=== PATIENT | male | born 1980 | race Caucasian/White ===

== ENCOUNTER 2022-03-19 00:47 | Emergency (ER) | payer BC ==
--- NOTE | 2022-03-19 01:29 | ERPHSYRPT ---
- History of Present Illness Historian: patient, other () Exam Limitations: other (Poor historian) Patient Subjective Stated Complaint: pt states that he has been having pain in his rt groin from kidney stones and chest pain since yesterday. rates painn 8/10 at this time. states he has been feeling very tired since he began having chest pain yesterday Triage Nursing Assessment: pt alert and oriented, answers questions approp. pt ambulatory with steady gait noted. skin pink warm and dry. heart rate 104 on monitor, sinus tach. Physician History: 41 yo wm w L sided chest pain x 1 day. Pain is 8/10, sharp, and accompanied by N/diaphoresis. Vomiting and dyspnea are denied. Pt states that he is hypertensive but takes no meds because he "does not like doctors". He smokes 1ppd. Pt also complains of chronic kidney stones and pain at "end of ureter". Hematuria/fever/cough are denied. Timing/Duration: yesterday Activities at Onset: rest Quality: sharpness, stabbing Location: substernal (L thorax) Chest Pain Radiation: no radiation Severity of Pain-Max: severe Severity of Pain-Current: severe Modifying Factors: Improves With: nothing Associated Symptoms: nausea, abdominal pain, diaphoresis, No vomiting, No pal pitations, No heartburn, No shortness of breath, No cough, No hurts to breathe, No chills, No fever, No fatigue, No weakness, No swelling/lump in chest, No syncope, No rash, No headache, No dizziness, No edema, No back pain Nitro Today/Relief: no nitro taken today Aspirin Treatment Today: no aspirin today Allergies/Adverse Reactions: No Known Drug Allergies Allergy (Verified 03/19/22 01:14) Hx Tetanus, Diphtheria Vaccination/Date Given: Yes Hx Influenza Vaccination/Date Given: No Hx Pneumococcal Vaccination/Date Given: No Immunizations Up to Date: Yes Travel Risk - International Travel Have you traveled outside of the country in past 3 weeks: No - Coronavirus Screening Are you exhibiting any of the following symptoms?: No Close contact with a COVID-19 positive Pt in past 14-21 Days: No - Vaccine Status Have you recieved a Covid-19 vaccination: No - Review of Systems Constitutional: No Symptoms Eyes: No Symptoms Ears, Nose, & Throat: No Symptoms Respiratory: No Symptoms, Dyspnea Cardiac: No Symptoms, Chest Pain Abdominal/Gastrointestinal: No Symptoms, Nausea Genitourinary Symptoms: No Symptoms, Dysuria Musculoskeletal: No Symptoms Skin: No Symptoms Neurological: No Symptoms Psychological: No Symptoms Endocrine: No Symptoms Hematologic/Lymphatic: No Symptoms Immunological/Allergic: No Symptoms - Past Medical History Pertinent Past Medical History: Yes Other Medical History: bulging disks, mrsa - Past Surgical History Past Surgical History: Yes Musculoskeletal: Orthopedic Surgery Other Surgical History: i&d's from mrsa - Social History Smoking Status: Current every day smoker How long have you smoked: 27 yrs Exposure to second hand smoke: Yes Drug Use: marijuana Patient Lives Alone: No Significant Family History: no pertinent family hx - Nursing Vital Signs Nursing Vital Signs: Initial Vital Signs Temperature 97.7 F 03/19/22 00:53 Pulse Rate 104 H 03/19/22 00:53 Respiratory Rate 16 03/19/22 00:53 Blood Pressure 170/112 03/19/22 00:53 O2 Sat by Pulse Oximetry 97 03/19/22 00:53 Pain Scale Pain Intensity 4 - Physical Exam General Appearance: no apparent distress Eye Exam: PERRL/EOMI, eyes nml inspection Ears, Nose, Throat Exam: normal ENT inspection, TMs normal, pharynx normal, moist mucous membranes Neck Exam: normal inspection, non-tender, supple, full range of motion, No meningismus, No mass, No Brudzinski, No Kernig's, No carotid bruit Respiratory Exam: normal breath sounds, lungs clear, airway intact Cardiovascular Exam: regular rate/rhythm, normal heart sounds, normal peripheral pulses, capillary refill <2 sec, No murmur Gastrointestinal/Abdomen Exam: soft, normal bowel sounds, No tenderness, No distention Male Genitalia Exam: hernia (Probable R IH(Pt states that this is a palpable kidney stone)) Back Exam: normal inspection, normal range of motion, No CVA tenderness, No vertebral tenderness Extremity Exam: normal inspection, normal range of motion Neurologic Exam: alert, oriented x 3, cooperative, improvement intern II-XII nml as tested, normal mood/affect, nml cerebellar function, nml station & gait, sensation nml, No motor deficits, No sensory deficit Skin Exam: normal color, warm, dry Lymphatic Exam: No adenopathy SpO2 Interpretation: normal SpO2: 97 O2 Delivery: Room Air - Course Nursing assessment & vital signs reviewed: Yes EKG Interpreted by Me: RATE (Sinus tach/[id number]/Borderline prolonged QTc/N onspecific ST changes) - CT Exams Abdomen/Pelvis CT Interpretation: Tele-radiologist Report (Hepatosplenomegaly/Fat containing R inguinal hernia) Ordered Tests: Active Orders 24 hr Category Date Time Status EKG-ER Only STAT Care 03/19/22 01:22 Completed IV Insertion STAT Care 03/19/22 01:22 Completed ABDOMEN AND PELVIS W/0 CONTRAS [CT] Stat Exams 03/19/22 02:19 Taken CHEST 1 VIEW (PORTABLE) Stat Exams 03/19/22 01:22 Taken CBC W DIFF Stat Lab 03/19/22 01:30 Completed CMP Stat Lab 03/19/22 01:30 Completed NT PRO BNP Stat Lab 03/19/22 01:30 Completed PROTIME WITH INR Stat Lab 03/19/22 01:30 Completed PTT Stat Lab 03/19/22 01:30 Completed TROPONIN Q3H Lab 03/19/22 01:30 Completed UA W/RFX CULTURE Stat Lab 03/19/22 02:20 Completed Urine Triage Profile Stat Lab 03/19/22 02:07 Completed Medication Summary Discontinued Medications Generic Name Dose Route Start Last Admin Trade Name Freq PRN Reason Stop Dose Admin Ketorolac Tromethamine 15 mg 03/19/22 02:21 03/19/22 02:48 Ketorolac Tromethamine 30 Mg/Ml Inj IV 03/19/22 02:22 15 mg STAT ONE Administration Ketorolac Tromethamine Confirm 03/19/22 02:47 Ketorolac Tromethamine 30 Mg/Ml Inj Administered 03/19/22 02:48 Dose 30 mg .ROUTE .STK-MED ONE Lab/Rad Data: Laboratory Result Diagrams 03/19/22 01:30 03/19/22 01:30 Laboratory Results 03/19/22 03/19/22 03/19/22 Range/Units 02:20 02:07 01:30 WBC (4.0-10.5) K/mm3 RBC (4.1-5.6) M/mm3 Hgb (12.5-18.0) gm/dl Hct (42-50) % MCV (78-100) fl MCH (26-32) pg MCHC (32-36) g/dl RDW (11.5-14.0) % Plt Count (150-450) K/mm3 MPV (7.5-11.0) fl Gran % (36.0-66.0) % Eos # (Auto) (0-0.5) Absolute Lymphs (auto) (1.0-4.6) Absolute Monos (auto) (0.0-1.3) Lymphocytes % (24.0-44.0) % Monocytes % (0.0-12.0) % Eosinophils % (0.00-5.0) % Basophils % (0.0-0.4) % Absolute Granulocytes (1.4-6.9) Basophils # (0-0.4) PT (9.4-12.5) SECONDS INR (0.8-3.0) APTT (25.1-36.5) SECONDS Sodium (137-145) mmol/L Potassium (3.5-5.1) mmol/L Chloride (98-107) mmol/L Carbon Dioxide (22-30) mmol/L Anion Gap (5-15) MEQ/L BUN (9-20) mg/dL Creatinine (0.66-1.25) mg/dL Estimated GFR ML/MIN Glucose (74-106) mg/dL Calcium (8.4-10.2) mg/dL Total Bilirubin (0.2-1.3) mg/dL AST (17-59) U/L ALT (0-50) U/L Alkaline Phosphatase (38-126) U/L Troponin I < 0.012 (0.000-0.034) ng/mL NT-Pro-B Natriuret Pep (0-450) pg/mL Serum Total Protein (6.3-8.2) g/dL Albumin (3.5-5.0) g/dL Urinalys Dipstick Clnc MAIN LAB Urine Color YELLOW (YELLOW) Urine Appearance SLIGHTLY CLOUDY (CLEAR) Urine pH 6.5 (5-6) Ur Specific [place] 1.025 (1.005-1.025) POC Urine Protein Conf NEGATIVE (Negative) Urine Ketones TRACE (NEGATIVE) Urine Nitrite NEGATIVE (NEGATIVE) Urine Bilirubin SMALL (NEGATIVE) Urine Urobilinogen 4 (0-1) mg/dL Urine Leukocytes NEGATIVE (NEGATIVE) Urine WBC (Auto) 3-5 (0-5) /HPF Urine RBC (Auto) 0-2 (0-2) /HPF Urine Bacteria (Auto) RARE (NEGATIVE) /HPF Urine RBC NEGATIVE (0-5) Victor Manuel/ul Urine Mucus (Auto) SLIGHT (NEGATIVE) /HPF Ur Culture Indicated? NO Urine Glucose NEGATIVE (NEGATIVE) mg/dL Urine Opiates Level NEGATIVE (NEGATIVE) Ur Methadone NEGATIVE (NEGATIVE) Urine Barbiturates NEGATIVE (NEGATIVE) Ur Phencyclidine (PCP) NEGATIVE (NEGATIVE) Urine Amphetamine NEGATIVE (NEGATIVE) U Benzodiazepine Level NEGATIVE (NEGATIVE) Urine Cocaine NEGATIVE (NEGATIVE) Urine Marijuana (THC) POSITIVE (NEGATIVE) 03/19/22 03/19/22 03/19/22 Range/Units 01:30 01:30 01:30 WBC 7.0 (4.0-10.5) K/mm3 RBC 3.98 L (4.1-5.6) M/mm3 Hgb 15.9 (12.5-18.0) gm/dl Hct 42.9 (42-50) % MCV 107.8 H (78-100) fl MCH 39.9 H (26-32) pg MCHC 37.1 H (32-36) g/dl RDW 13.0 (11.5-14.0) % Plt Count 141 L (150-450) K/mm3 MPV 10.0 (7.5-11.0) fl Gran % 68.0 H (36.0-66.0) % Eos # (Auto) 0.15 (0-0.5) Absolute Lymphs (auto) 1.65 (1.0-4.6) Absolute Monos (auto) 0.38 (0.0-1.3) Lymphocytes % 23.7 L (24.0-44.0) % Monocytes % 5.5 (0.0-12.0) % Eosinophils % 2.2 (0.00-5.0) % Basophils % 0.6 (0.0-0.4) % Absolute Granulocytes 4.75 (1.4-6.9) Basophils # 0.04 (0-0.4) PT 14.4 H (9.4-12.5) SECONDS INR 1.22 (0.8-3.0) APTT 35.0 (25.1-36.5) SECONDS Sodium 140 (137-145) mmol/L Potassium 3.6 (3.5-5.1) mmol/L Chloride 105 (98-107) mmol/L Carbon Dioxide 23 (22-30) mmol/L Anion Gap 15.2 H (5-15) MEQ/L BUN 3 L (9-20) mg/dL Creatinine 0.60 L (0.66-1.25) mg/dL Estimated GFR > 60.0 ML/MIN Glucose 153 H (74-106) mg/dL Calcium 10.4 H (8.4-10.2) mg/dL Total Bilirubin 2.30 H (0.2-1.3) mg/dL AST 104 H (17-59) U/L ALT 64 H (0-50) U/L Alkaline Phosphatase 103 (38-126) U/L Troponin I (0.000-0.034) ng/mL NT-Pro-B Natriuret Pep 21.4 (0-450) pg/mL Serum Total Protein 7.8 (6.3-8.2) g/dL Albumin 4.7 (3.5-5.0) g/dL Urinalys Dipstick Clnc Urine Color (YELLOW) Urine Appearance (CLEAR) Urine pH (5-6) Ur Specific [place] (1.005-1.025) POC Urine Protein Conf (Negative) Urine Ketones (NEGATIVE) Urine Nitrite (NEGATIVE) Urine Bilirubin (NEGATIVE) Urine Urobilinogen (0-1) mg/dL Urine Leukocytes (NEGATIVE) Urine WBC (Auto) (0-5) /HPF Urine RBC (Auto) (0-2) /HPF Urine Bacteria (Auto) (NEGATIVE) /HPF Urine RBC (0-5) Victor Manuel/ul Urine Mucus (Auto) (NEGATIVE) /HPF Ur Culture Indicated? Urine Glucose (NEGATIVE) mg/dL Urine Opiates Level (NEGATIVE) Ur Methadone (NEGATIVE) Urine Barbiturates (NEGATIVE) Ur Phencyclidine (PCP) (NEGATIVE) Urine Amphetamine (NEGATIVE) U Benzodiazepine Level (NEGATIVE) Urine Cocaine (NEGATIVE) Urine Marijuana (THC) (NEGATIVE) - Progress Progress Note: 03/19/22 03:19 15mg IV Toradol Counseled pt/family regarding: lab results, diagnosis, need for follow-up, rad results - Departure Departure Disposition: Home Clinical Impression: Transaminitis, Chest pain, Hypertension Condition: Stable Critical Care Time: No Referrals: DOCTOR,NO FAMILY [Primary Care Provider] - Follow up/PCP as directed Instructions: High Blood Pressure (DC), Chest Pain (DC) Additional Instructions: Follow up with your family MD about elevated liver enzymes Start Norvasc once a day Return to ER for increasing pain, shortness of breath. or temperature greater than 100.5 Prescriptions: Amlodipine Besylate 5 mg [Norvasc 5 mg] 2.5 mg PO DAILY #30 tablet
[2022-03-19 01:36] LABS: Absolute Neutrophil Ct (ANC) 4.75 (1.4-6.9); Basophil (Absolute #) 0.04 (0-0.4); Eosinophil % 2.2 % (0.00-5.0); Eosinophil (Absolute #) 0.15 (0-0.5); Hematocrit 42.9 % (42-50); Hemoglobin 15.9 gm/dl (12.5-18.0); Lymphocyte (Absolute #) 1.65 (1.0-4.6); Lymphocytes % 23.7 % (24.0-44.0); Mean Cell Volume 107.8 fl (78-100); Mean Corpuscular Hemoglobin 39.9 pg (26-32); Mean Corpuscular Hgb Concent. 37.1 g/dl (32-36); Monocyte (Absolute #) 0.38 (0.0-1.3); Monocytes % 5.5 % (0.0-12.0); Platelet Count 141 K/mm3 (150-450); Red Blood Count 3.98 M/mm3 (4.1-5.6)
[2022-03-19 01:43] LABS: INR 1.22 (0.8-3.0); PROTIME 14.4 SECONDS (9.4-12.5)
[2022-03-19 01:56] LABS: ALBUMIN 4.7 g/dL (3.5-5.0); ALKALINE PHOSPHATASE 103 U/L (38-126); ANION GAP 15.2 MEQ/L (5-15); BLOOD UREA NITROGEN 3 mg/dL (9-20); CHLORIDE 105 mmol/L (98-107); Calcium 10.4 mg/dL (8.4-10.2); Carbon Dioxide 23 mmol/L (22-30); EST GLOMERULAR FILTRATION RATE > 60.0 ML/MIN; Glucose 153 mg/dL (74-106); NT PRO BNP 21.4 pg/mL (0-450); Potassium 3.6 mmol/L (3.5-5.1); SGOT/AST 104 U/L (17-59); SGPT/ALT 64 U/L (0-50); SODIUM 140 mmol/L (137-145); Total Protein 7.8 g/dL (6.3-8.2)
[2022-03-19 02:21] LABS: Appearance SLIGHTLY CLOUDY (CLEAR); Bacteria RARE /HPF (NEGATIVE); Bilirubin SMALL (NEGATIVE); Glucose NEGATIVE (NEGATIVE); Ketones TRACE (NEGATIVE); Mucus SLIGHT /HPF (NEGATIVE); RBC 0-2 /HPF (0-2); Specific Gravity 1.025 (1.005-1.025)
[2022-03-19] MEDS ORDERED: TORAdol 30 mg Injection IV ONE (02:21)
[2022-03-19 02:22] LABS: Nitrite NEGATIVE (NEGATIVE); Ph 6.5 (5-6); Protein,Urine Dip NEGATIVE (Negative); RBC NEGATIVE Ery/ul (0-5); Urine Cultured Indicated? NO; Urobilinogen 4 mg/dL (0-1)
[2022-03-19 02:31] LABS: Dipstick done @ ? MAIN LAB
[2022-03-19 02:31] LABS: Amphetamine,Urine NEGATIVE (NEGATIVE); Barbiturate,Urine NEGATIVE (NEGATIVE); Benzodiazepine,Urine NEGATIVE (NEGATIVE); Cocaine,Urine NEGATIVE (NEGATIVE); Methadone,Urine NEGATIVE (NEGATIVE); Opiate,Urine NEGATIVE (NEGATIVE); PCP,Urine NEGATIVE (NEGATIVE); THC,Urine POSITIVE (NEGATIVE)
[2022-03-19] MEDS ORDERED: TORAdol 30 mg Injection ONE (02:47)
[2022-03-19 03:23] VITALS: O2SAT 97
[2022-03-19 03:26] VITALS: BP 145/92; PULSE 84
--- NOTE | 2022-03-19 07:37 | XRAY ---
Indication: Chest pain. Comparison: None Portable apical lordotic chest demonstrates normal heart and lungs. Bony thorax intact with minimal degenerative changes and minimal dextroscoliosis.
--- NOTE | 2022-03-19 07:42 | XRAY ---
Indication: Bilateral flank pain. History of stones. Multiple contiguous axial images obtained through the abdomen and pelvis without contrast using renal stone protocol. Comparison: None Lung bases demonstrates mild dependent atelectasis. No infiltrate or effusion. Heart not enlarged. No renal calculus or evidence for obstructive uropathy in either system. Noncontrasted stomach and bowel loops appear nonobstructed. Normal appendix. Mild scattered colonic diverticulosis without diverticulitis. No free fluid/air. Incidental 23.5 cm fatty hepatomegaly, 18.5 cm splenomegaly, and 2.3 cm left renal cyst. Remaining liver, gallbladder, pancreas, spleen, adrenal glands, kidneys, ureters, and bladder are unremarkable for noncontrast exam. Mild scattered aortoiliac calcifications without AAA. Osseous structures intact with mild degenerative changes throughout the spine. Small fatty right inguinal hernia. Impression: 1. Negative renal calculus or evidence for obstructive uropathy. 2. Incidental colonic diverticulosis, fatty hepatomegaly, splenomegaly, small fatty right inguinal hernia, and chronic bony findings. Comment: Preliminary interpretation made by [facility]. No critical discrepancy.
== END 2022-03-19 03:30 | disposition home or self-care (01) ==
LOC: ED 00:47
DX: I10 Essential (primary) hypertension (principal); R07.9 Chest pain, unspecified; R74.01 Elevation of levels of liver transaminase levels; R11.0 Nausea; R61 Generalized hyperhidrosis; R10.9 Unspecified abdominal pain; Z72.0 Tobacco use
CPT/HCPCS: 36000; 36415; 71045; 74176; 80053; 80307; 81015; 83880; 84484; 85025; 85610; 85730; 93005; 96374; 99284; J1885

== ENCOUNTER 2024-04-30 12:57 | Emergency (ER) | payer BC ==
--- NOTE | 2024-04-30 13:22 | ERPHSYRPT ---
- History of Present Illness Time Seen by Provider: 04/30/24 13:22 Source: patient Exam Limitations: no limitations Physician History: The patient, with a history of multiple surgeries including a meniscus repair less than a year ago, presents after a fall down 'ten, twelve steps' two days ago. He was carrying large area rugs down the stairs when he slipped on a rug and fell directly onto his knees, using his right elbow to brace himself. He reports severe pain in his right knee, which he has been unable to walk on since the fall. He can only bend the knee slightly and has difficulty lifting his leg when lying on his side. He also reports some pain in his right hip and right elbow. His ankles are also swollen, but it is unclear if this is related to the fall. Occurred: yesterday Reason for Fall: slipped Injuries/Pain Location: upper extremity (right elbow), lower extremity (bilateral knee) Loss of Consciousness: no loss of consciousness Quality: throbbing Severity of Pain-Max: severe Severity of Pain-Current: severe Modifying Factors: Worsens With: movement Associated Symptoms (Fall): denies symptoms Allergies/Adverse Reactions: No Known Drug Allergies Allergy (Verified 04/30/24 13:10) Hx Tetanus, Diphtheria Vaccination/Date Given: Yes Hx Influenza Vaccination/Date Given: No Hx Pneumococcal Vaccination/Date Given: No - Review of Systems All Other Systems: Reviewed and Negative - Past Medical History Pertinent Past Medical History: Yes Psycho-Social History: Anxiety, Other Other Medical History: bulging disks, mrsa,ESPHOGEAL VARACIES,PTSD - Past Surgical History Past Surgical History: Yes Musculoskeletal: Orthopedic Surgery Other Surgical History: i&d's from mrsa,KNEE, RIGHT ELBOW .LEFT KNEE ,BANDING, KIDNEY STONE REMOVAL Significant Family History: no pertinent family hx - Social History Smoking Status: Current every day smoker How long have you smoked: 27 yrs Exposure to second hand smoke: Yes Drug Use: marijuana Patient Lives Alone: No - Nursing Vital Signs Nursing Vital Signs: Initial Vital Signs Temperature 97.2 F 04/30/24 13:26 Pulse Rate 78 04/30/24 13:26 Respiratory Rate 18 04/30/24 13:26 Blood Pressure 162/94 04/30/24 13:26 O2 Sat by Pulse Oximetry 98 04/30/24 13:26 Pain Scale Pain Intensity 5 - Adams Coma Score Best Eye Response (Adams): (4) open spontaneously Best Verbal Response (Alexander): (5) oriented Best Motor Response (Adams): (6) obeys commands Adams Total: 15 - Physical Exam General Appearance: mild distress Head Injury: no evidence of injury Comment: Right elbow Inspection: no obvious deformities, no swelling + lateral and medial epicondyle TTP ROM limited by pain Elbow Stability: - varus laxity, - valgus laxity Biceps 5/5 Triceps 5/5 Wrist Extension 5/5, + pain Wrist Flexion 5/5, + pain Intrinsics 5/5, - pain Tinel's: - at the cubital tunnel Phalen's: - at the cubital tunnel Sensation: Subjective normal median, ulnar, radial and axillary sensation Vasculature: 2+ radial pulse UE Skin: no redness, no warmth, no ecchymosis, no rash Right knee Inspection: No obvious deformity, + swelling + medial joint line, + lateral joint line and + LCL TTP ROM: 5 to 110 Crepitus: + Sly: - Anterior Drawer: - Posterior Drawer: - Varus stress: + Valgus stress: - Alondra: + Patellar Grind: - J-Sign: - Extensor Lag: - Klever: + Patellar Apprehension: - Effusion: + Sensation: Subjective normal distal sensation Vasculature: <2 second capillary refill LE Skin: no redness, no warmth, no ecchymosis, no rash - Course Nursing assessment & vital signs reviewed: Yes - Radiology Exams Right Hip X-ray Interpretation: Reviewed by me, No Fracture Right Knee X-ray Interpretation: Reviewed by me, No Fracture Left Knee X-ray Interpretation: Reviewed by me, No Fracture Right Elbow X-ray Interpretation: Reviewed by me, No Fracture Ordered Tests: Medication Summary Discontinued Medications Generic Name Dose Route Start Last Admin Trade Name Freq PRN Reason Stop Dose Admin Methylprednisolone Acetate 80 mg 04/30/24 13:33 04/30/24 14:44 Methylprednisolone Acetate 80 Mg/Ml Vial IM 04/30/24 13:34 Not Given ONCE ONE Oxycodone HCl 10 mg 04/30/24 14:20 04/30/24 14:31 Oxycodone Hcl 10 Mg Controlled Release Tablet PO 04/30/24 14:21 10 mg ONCE ONE Administration - Progress Progress: unchanged Progress Note: Patient has multiple other comorbitites that prevent him from taking NSAIDs and Tylenol. I will give him an increased dose of Oxycodone and send this home for pain control. No acute fracture appreciated today. JACK wrap placed to help control swelling. Advised to follow up in ortho clinic for possible MRI order. Counseled pt/family regarding: need for follow-up, rad results Medical Desision Making - Diagnostic Testing Diagnostic test were ordered, analyzed, and reviewed by me: Yes Radiological Interpretation: Reviewed by me, Teleradiologist Report - Risk of complications The pt has a mod risk of morbidity or mortality based on: Need for prescription drug management - Departure Departure Disposition: Home Clinical Impression: Internal derangement of right knee, Effusion, right knee, Right knee pain, Left knee pain, Right elbow pain, Fall Condition: Good Critical Care Time: No Referrals: MARIE ZAPATA PA [Primary Care Provider] - Follow up/PCP as directed Instructions: Contusion (DC) Prescriptions: Oxycodone HCl [Oxycodone HCl ER] 10 mg PO BID PRN 3 Days #6 tablet MDD 2 PRN Reason: Pain
[2024-04-30 13:27] VITALS: BP 162/94; PULSE 78; RESP 18; TEMP 97.2; O2SAT 98
--- NOTE | 2024-04-30 14:14 | XRAY ---
Indication: Pain following fall. Comparison: None 2 view right elbow demonstrates tiny spurring posterior olecranon process and tiny lateral epicondyle heterotopic ossification. No other bony, articular, or soft tissue abnormalities.
--- NOTE | 2024-04-30 14:16 | XRAY ---
Indication: Pain following fall. Comparison: None AP pelvis and 2 View right hip obtained. No bony, articular, or soft tissue abnormalities.
--- NOTE | 2024-04-30 14:16 | XRAY ---
Indication: Pain following fall. Comparison: None 4 view right knee demonstrates small spurring tibial tuberosity, mild lateral patellofemoral joint space narrowing, and small posterior knee joint heterotopic ossification. No other bony, articular, or soft tissue abnormalities.
--- NOTE | 2024-04-30 14:18 | XRAY ---
Indication: Pain following fall. Comparison: None 4 view left knee demonstrates small spurring tibial tuberosity and mild lateral patella tilting. No other bony, articular, or soft tissue abnormalities.
[2024-04-30] MEDS: Oxycontin 10 MG ER PO ONE (14:31)
[2024-04-30] MEDS: Depo-Medrol 80 MG/ML IM ONE (14:44)
== END 2024-04-30 14:48 | disposition home or self-care (01) ==
LOC: ED 12:57
DX: M23.91 Unspecified internal derangement of right knee (principal); M25.461 Effusion, right knee; M25.561 Pain in right knee; M25.562 Pain in left knee; M25.521 Pain in right elbow; W10.9XXA Fall (on) (from) unspecified stairs and steps, initial encounter; Z79.891 Long term (current) use of opiate analgesic; Z72.0 Tobacco use
CPT/HCPCS: 73070; 73502; 73564; 99283; A9270-GY